=== PATIENT | male | born 1970 | race Caucasian/White ===

== ENCOUNTER → 2020-04-08 | Outpatient (CLI) | payer OTHER ==
[~2020-04-08] MED LIST: AMLODIPINE BESYL5 MG PO; CETIRIZINE HCL10 MG PO; CYANOCOBAL1000 MCG/1 IM; HUMIRA40 MG/0.4 SQ; LEVOTHYROXINE50 MC1 PO; LOSARTAN-HCTZ1 EAC1 PO; METFORMIN HCL500 MG PO; OMEPRAZOLE40 MG PO; TIZANIDINE HCL4 MG PO
== END ==
LOC: KOH-I 12:54
DX: M51.36 Other intervertebral disc degeneration, lumbar region (principal); M51.37 Other intervertebral disc degeneration, lumbosacral region
CPT/HCPCS: 72131

== ENCOUNTER → 2020-07-11 | Outpatient (CLI) | payer OTHER ==
[2020-07-11 11:52] LABS: HEMOGLOBIN 14.5 gm/dl (14.0-17.5); RED BLOOD COUNT 4.75 M/UL (4.20-5.50); WHITE BLOOD COUNT 8.6 K/UL (4.5-11.0)
[2020-07-11 12:08] LABS: BUN/CREATININE RATIO 14 (0-10)
== END ==
LOC: OPSV2 10:51 → EDSTATUS 07-12 11:00 → OPSV2 07-12 11:00
PROVIDERS: Orthopaedic Surgery
DX: Z01.818 Encounter for other preprocedural examination (principal); M51.16 Intervertebral disc disorders with radiculopathy, lumbar region; R91.8 Other nonspecific abnormal finding of lung field
CPT/HCPCS: 71046; 80048; 81001; 83036; 85027; 87081; 93005

== ENCOUNTER → 2020-07-22 | Outpatient (CLI) | payer OTHER | LOC: LAB 12:35 | DX: Z01.812 Encounter for preprocedural laboratory examination (principal); M51.16 Intervertebral disc disorders with radiculopathy, lumbar region | CPT/HCPCS: 36415; 84520; 85610; 85730; 86850; 86900; 86901 ==

== ENCOUNTER 2020-07-24 06:13 | Inpatient (IN) | payer OTHER ==
[~2020-07-24] VITALS: Ht 180.3 cm; Wt 122.5 kg
[2020-07-24] MEDS ORDERED: AMLODIPINE BESYL5 MG PO (06:39)
[2020-07-24] MEDS ORDERED: TIZANIDINE HCL4 MG PO (06:39)
[2020-07-24] MEDS ORDERED: LEVOTHYROXINE50 MC1 PO (06:40)
[2020-07-24] MEDS ORDERED: CYANOCOBAL1000 MCG/1 IM (06:40)
[2020-07-24] MEDS ORDERED: METFORMIN HCL500 MG PO (06:41)
[2020-07-24] MEDS ORDERED: OMEPRAZOLE40 MG PO (06:41)
[2020-07-24] MEDS ORDERED: LOSARTAN-HCTZ1 EAC1 PO (06:41)
[2020-07-24] MEDS ORDERED: HUMIRA40 MG/0.4 SQ (06:42)
[2020-07-24] MEDS ORDERED: CETIRIZINE HCL10 MG PO (06:42)
[2020-07-24 14:23] LABS: HEMOGLOBIN 13.1 gm/dl (14.0-17.5); RED BLOOD COUNT 4.49 M/UL (4.20-5.50); WHITE BLOOD COUNT 17.4 K/UL (4.5-11.0)
[2020-07-24 14:49] LABS: BUN/CREATININE RATIO 17 (0-10)
[2020-07-25 03:37] LABS: HEMOGLOBIN 12.2 gm/dl (14.0-17.5); RED BLOOD COUNT 4.05 M/UL (4.20-5.50); WHITE BLOOD COUNT 19.4 K/UL (4.5-11.0)
[2020-07-25 04:00] LABS: BUN/CREATININE RATIO 18 (0-10)
[2020-07-26 04:16] LABS: HEMOGLOBIN 11.4 gm/dl (14.0-17.5); RED BLOOD COUNT 3.77 M/UL (4.20-5.50); WHITE BLOOD COUNT 15.4 K/UL (4.5-11.0)
[2020-07-26 04:54] LABS: BUN/CREATININE RATIO 14 (0-10)
[2020-07-27 03:49] LABS: HEMOGLOBIN 10.8 gm/dl (14.0-17.5); RED BLOOD COUNT 3.54 M/UL (4.20-5.50)
[2020-07-27 03:52] LABS: WHITE BLOOD COUNT 11.2 K/UL (4.5-11.0)
[2020-07-27 04:09] LABS: BUN/CREATININE RATIO 13 (0-10)
== END 2020-07-27 11:13 | disposition home or self-care (01) | DRG 455 ==
LOC: OR 06:13 → CCU 16:36 → M/S 07-25 12:20
PROVIDERS: Internal Medicine Infectious Disease; ADMIT Orthopaedic Surgery
PROC: 0SG3071 Fusion of Lumbosacral Joint with Autologous Tissue Substitute, Posterior Approach, Posterior Column, Open Approach (ICD-10-PCS; 2020-07-24)
PROC: 01NB0ZZ Release Lumbar Nerve, Open Approach (ICD-10-PCS; 2020-07-24)
PROC: 01NR0ZZ Release Sacral Nerve, Open Approach (ICD-10-PCS; 2020-07-24)
PROC: 0SG30AJ Fusion of Lumbosacral Joint with Interbody Fusion Device, Posterior Approach, Anterior Column, Open Approach (ICD-10-PCS; principal; 2020-07-24 07:30)
DX: M51.17 Intervertebral disc disorders with radiculopathy, lumbosacral region (principal); I10 Essential (primary) hypertension; L30.9 Dermatitis, unspecified; Z20.822 Contact with and (suspected) exposure to COVID-19; K21.9 Gastro-esophageal reflux disease without esophagitis; E03.9 Hypothyroidism, unspecified; I87.8 Other specified disorders of veins; K76.0 Fatty (change of) liver, not elsewhere classified; M48.061 Spinal stenosis, lumbar region without neurogenic claudication; E87.6 Hypokalemia; K80.20 Calculus of gallbladder without cholecystitis without obstruction; J60 Coalworker's pneumoconiosis; G47.33 Obstructive sleep apnea (adult) (pediatric); E11.9 Type 2 diabetes mellitus without complications; Z79.4 Long term (current) use of insulin; Z98.1 Arthrodesis status; Z88.1 Allergy status to other antibiotic agents; Z87.891 Personal history of nicotine dependence; Z82.49 Family history of ischemic heart disease and other diseases of the circulatory system; Z83.3 Family history of diabetes mellitus
CPT/HCPCS: 36415; 72100; 72110; 76000; 80048; 80053; 82962; 84520; 85025; 85027; 85610; 85730; 86850; 86900; 86901; 97116-GP-CQ; 97161; 97166; 97535; C1713; C1762; C1781; J0690; J1040; J1100; J1170; J2001; J2250; J2405; J2704; J3010; J3370; J3420; J7030; J7040; J7120; U0003